=== PATIENT | female | born 1975 | race Asian ===

== ENCOUNTER 2021-10-06 17:22 | Emergency (ER) | payer OTHER ==
--- OUTSIDE RECORDS SUMMARY | 2021-10-06 17:26 | XMS REPORT | Continuity of Care Document ---
:1975 Author Organization [facility] t Address [address] [place] [address] Care Team Providers Name Role Phone Whitney Nayla Attending Clinician Unavailable Corrie Cruz Attending Clinician Unavailable Elizabeth Harper Attending Clinician Unavailable Kinza Geller Attending Clinician Unavailable UNKNOWN Attending Clinician Unavailable Joel Hawk Attending Clinician Unavailable Joel Cruz Admitting Clinician Unavailable Elizabeth Harper Admitting Clinician Unavailable Physician, Primary or Family Admitting Clinician Unavailabl e Kinza Geller Admitting Clinician Unavailable Joel Hawk Admitting Clinician Unavailable Payers Payer Name Policy Type Policy Number Effective Date Expiration Date S ource Problems This patient has no known problems. Allergies, Adverse Reactions, Alerts Allergy Allergy Status Severity Reaction(s) Onset Inactive Treating Comm ents Source Name Type Date Date Clinician No Known DA Active U 2021-0 [facility] 3-07 [place] [facility] 00:00: [facility] [address] [facility] No Known DA Active U 2019-06 [facility]ie 0-27 [facility] 00:[facility]: d 00 [facility] [place] No Known DA Active U 2019-06 [facility] Allergie 0-27 [place] [facility] 00:[place]: d 00 [facility] Medications This patient has no known medications. Procedures Procedure Date / Time Performed Performing Clinician Clyde el [id number] 2020-04-03 00:00:00 CHARLENE.07 [facility] [id number] 2020-04-03 00:00:00 CHARLENE.07 [facility] [id number] 2020-04-03 00:00:00 CHARLENE.07 [facility] [id number] 2020-04-03 00:00:00 CHARLENE.07 [facility] Encounters Start End Encounter Admission Attending Care Care Encounter Source Date/Time Date/Time Type Type Clinicians Facility Department ID 2021-08-25 Outpatient [place], [facility] [id number] 11[facility]41[facility]01 [facility] 2020-04-04 Inpatient OCHOA Lopez MEDI.01 [id number] [facility] 19:21:00 [facility] 2020-04-03 [facility] [id number] [facility] 11:00:00 Corrie [id number] [facility] 2020-02-21 Inpatient MARLENE Tsang [facility] [id number] [facility] 11:15:00 [place], [id number] Jr de la cruz [facility] 2021-09-24 2021-09-24 [facility] [id number] [facility] 2021-08-25 2021-08-25 ambulatory [facility] [id number] [facility] 2021-08-13 2021-08-13 Outpatient EL [facility] DAYS [id number] [facility] 08:23:00 08:23:00 [place], [id number] [facility] 2021-08-13 2021-08-13 Outpatient EL Byunm-Arrast [facility] [id number] [facility] 08:23:00 08:23:00 [place], [place] [facility] 2021-08-10 2021-08-10 Outpatient UNKNOWN HCACL LABO [id number] [facility] 16:59:00 16:59:00 [id number] [facility] 2021-03-17 2021-03-17 Outpatient KAREN Kat FABRICIO [id number] [facility] 12:00:00 12:00:00 Severo [id number] [facility] 2021-03-17 2021-03-17 Outpatient OCHOA KatPM FABRICIO [id number] [facility] 12:00:00 12:00:00 Severo 11 [facility] 2020-04-01 2020-04-01 Outpatient Anthony[facility] LA4 [id number] [facility] 11:00:00 11:00:[id number] [facility] 2020-02-13 2020-02-13 Outpatient MARLENE PACKERPM FABRICIO [id number] [facility] 12:00:00 12:00:00 [place], [facility] 2020-02-12 2020-02-12 Outpatient MARLENE PACKER FABRICIO [id number] [facility] 12:00:00 12:00:00 [place], [facility] Results Test Description Test Time Test Comments Results Result Comments Source SURGICAL 2021-08-17 14:26:00 Test Item Value Reference Range Interpretation Comme nts SURGICAL RUN (test DATE: 08/17/21 [facility] - LAB PAGE 1 RUN TIME: code = 1427 Specimen Inquiry RUN USER: INTERFACE SR) PATIENT : ROXY MENON LOC: ISIDRA U #: [id number] AGE/ SX: 46/F ROOM: RE08/13/21[facility] DR: Ranulfo Geller : 75 BED : DIS: STATUS: [facility] TLOC: SPEC #: [id number] RECD: 08/14/21 [facility] #: [id number] REYNALDO: 08/13/21-[address]: Dorcas Geller MD ENTERED: 08/14/21 SP TYPE: SURGICAL O THR DR: Self Referred ORDERED: 21441/2, ANATOMIC SPEC HISTOLOGY: TISSUE ID BLK PCS ELISABET LEV / PROCEDURE DISPOSITION ____ ___ ___ ___ ___ OVL A 4 1 OVR B 4 1 TISSUES: A. OVARY, LEFT - Lt Ovary and Tube B. OVARY, R IGHT - Rt Ovary and Tube FINAL DIAGNOSIS A. Left Ovary and Fallopian Tube, Left Salping o-oophorectomy:- Ovary with cortical inclusion cyst.- Fallopian tube, full cross section, with par atubal cyst. B. Right Ovary and Fallopian Tube, Right Salpingo-oophorectomy:- Ovar y with cortical inclusion cyst.- Fallopian tube, full cross section, with no histopathologic alte ration. GROSS DESCRIPTION A. Received in formalin, labeled with the patient's name, date of and designatedspecimen A "left ovary and tube". Received is a fimbriated fallopian tube th at measures4.5 cm in length with an average diameter of 0.5 cm and attached maloney ovary that chu ures1.7 x 1.1 x 0.9 cm. The ovary is serially sectioned revealing a maloney homogenous cut surfacean d a well circumscribed cyst like structure that measures 0.3 cm in the greatestdimension. Also trina ntified is a paratubal cyst that has a diameter of 0.7 cm. Thefallopian tube is sectioned using the [facility] melinda col. The specimen is submittedrepresentatively as follows: A1 - two sections from the ovary; A2 to A4 - fallopiantube sections from resection to f imbria. The fimbria is submitted in A4. B. Received in formalin, labeled with the patient's n petr, date of and designatedspecimen B "right ovary and tube". Received is a fimbriated fal lopian tube that measures4.6 cm in length with an average diameter of 0.5 cm. The corresponding o vary measures 2.8x 1.6 x 1.0 cm and is maloney and wrinkled. The ovary is serially sectioned revealing apink-yellow smooth cut surface The fallopian tube is sectioned using the SEE-FIM protocol. The sp ecimen is submitted representatively as follows: B1 - two cut sections from theovaries; B2 to B4 - fallopian tube, submitted sequentially; fimbria is submitted inB4. MACK/carol CONTINUED ON NEXT PAGE RUN DATE: 08/17/21 [facility] - LAB PAGE 2 RUN TIME: 1426 Specimen Inquiry RUN USER: INTERFACE SPEC #: [id number] PATIENT: ROXY MENON #[id number] (Continued) ---- JADE Yao (Continued) [facility], [facility], [address] Unless gross only, the diagnosis is based upon microscopic ex amination.Immunohistochemistry: This test was developed and its performancecharacteristics d etermined by this laboratory. It has not been approved nordoes it need approval by the [place] FDA. Appr opriate positive and negative controlsare reviewed and judged to be acceptable. This laboratory is certified undert Clinical Laboratory Improvement Amendments (CLIA-88) as qualified toper form high complexity clinical laboratory testing. CLINICAL INFORMATION Breast Cancer Signed SIGNATURE ON FILE Kian Mckeon 08/17/21 1426 END OF REPORT Novel Coronavirus 2019 [id number] 05:20:00 Test Item Value Reference Range Interpretation Comments Novel Coronavirus Negative Negative Positive r esults are 2019 Inhouse (test indicativ e of the presence code = COVNONPUI) ofSARS-CoV -2 RNA, clinical correlation wit h patient historyand othe r diagnostic info rmation is necessary to determinepatien t infection status. Positiv e results do not rule out bacterial infection or co -infection with other viru ses. Negative result s do not preclude SARS-C oV-2 infection andsh ould not be used as the chilango e basis for patient managementdecis ions. Negative result s must be combined with otherclinical observations, p atient history, and epidemiological information . Detection of SARS-CoV-2 RNA may be affe cted bysample collec tion methods, storag e conditions, and /or stageof infection. Karol l RNA mutations, vacc inations, antiviraltherap eutics, antibiotics, chemotherapeuti c orimmunosuppres kaylin drugs have not been e valuated for effectson d etection. Results are for the identification of SARS-CoV-2 RNA usingreal-time (RT) polymerase rosario n reaction (PCR) technolog yfor the qualitative det ection of nucleic acids f rom vhoEQIY-[id number]-6 v irus and diagnosis of SA RS-CoV-2 virusinfection. It is an Emergency Use Authorization ( EUA) testauthorized by the U.S. FDA. Novel Coronavirus 2018 [id number] 05:20:00 Test Item Value Reference Range Interpretation Comments Novel Coronavirus Negative Negative Positive r esults are 2019 Inhouse (test indicativ e of the presence code = COVNONPUI) ofSARS-CoV -2 RNA, clinical correlation wit h patient historyand othe r diagnostic info rmation is necessary to determinepatien t infection status. Positiv e results do not rule out bacterial infection or co -infection with other viru ses. Negative result s do not preclude SARS-C oV-2 infection andsh ould not be used as the chilango e basis for patient managementdecis ions. Negative result s must be combined with otherclinical observations, p atient history, and epidemiological information . Detection of SARS-CoV-2 RNA may be affe cted bysample collec tion methods, storag e conditions, and /or stageof infection. Karol l RNA mutations, vacc inations, antiviraltherap eutics, antibiotics, chemotherapeuti c orimmunosuppres kaylin drugs have not been e valuated for effectson d etection. Results are for the identification of SARS-CoV-2 RNA usingreal-time (RT) polymerase rosario n reaction (PCR) technolog yfor the qualitative det ection of nucleic acids f rom dceAKXX-OiH-1 v irus and diagnosis of SA RS-CoV-2 virusinfection. It is an Emergency Use Authorization ( EUA) testauthorized by the U.S. FDA. - XR CHEST 1 [id number] 12:27:00 [facility] : 1975 Sex: FPatient Name: ROXY MENON Unit No: [id number] EXAMS: CPT CODE: [id number] XR CHEST 1 V 67973 EXAM: Chest one view. Location: A1 HISTORY: PRE OP COMPARISON: None available. FINDINGS: Surgical clips are seen within the right hilum. The lungs are free of focal airspace consolidations.. There are no pleural effusions or pneumothorax. The aorta, pulmonary vasculature and mediastinum are within normal limits. Cardiac silhouette is normal in size and contour. Visualized skeletal structures are unremarkable. IMPRESSION: No active disease in the chest. at 1227 Reported and signed by: ARELIS OTTO M.D. CC: Dorcas Geller MD Technologist: Lars Baker Fluoro Time: DAP (Gy m2): Air Kerma (mGy): Trscr Dt/Tm: 08/10/2021 (1227) by:[email or web address] Printed Date/Time: 08/10/2021 (6070) Name: ROXY MENON [facility] Phys: Chintan Damico [address] : 1975 Age: 46 Sex: [place] [address] Loc: P.SRG Exam Date: 08/10/2021 Status: PRE SDC PH: FAX: PAGE 1 Signed ReportTHROMBOPLASTIN TIME [id number] 11:43:00 Test Item Value Reference Range Interpretation Comments THROMBOPLASTIN TIME 34.8 SECONDS 23.8-34.8 N INTERPRE TATIVE PARTIAL (test code = DATA:Th erapeutic PTT) range: Unfractionated heparin:55 - 80 seconds Argatroban:1.5 to 3 times the basel ine PTT COMPREHENSIVE METABOLIC [id number] 11:43:00 Test Item Value Reference Range Interpretation Comments SODIUM (test code = 143 mmol/L 136-145 N Please n ote: New NA) Reference Range Jul 2020 POTASSIUM (test 4.4 mmol/L 3.5-5.1 N code = K) CHLORIDE (test code 104 mmol/L 98-107 N Please n ote: New = CL) Reference Range Jul 2020 CARBON DIOXIDE 29 mmol/L 20-31 N Please note: New (test code = CO2) Reference Range Jul 2020 GLUCOSE (test code 96 mg/dL 74-106 N Please no te: New = GLU) Reference Range Jul 2020 BLOOD UREA NITROGEN 11 mg/dL 9-23 N Please n ote: New (test code = BUN) Reference Range Jul 2020 GLOMERULAR >=60 max >60 Units are FILTRATION RATE estimate mL/min mL/min/1. 73m2 The (test code = GFR) estimated glomerular filtration rate is computed usingpatient ra ce, age (>18), sex, and serum creatinin e. If anyof the ne eded data elements a re missing the Laboratory zay ot compute an estimation of t he glomerular filtration rate . CREATININE (test 0.70 mg/dL 0.55-1.02 N Please note : New code = CREAT) Reference Rang e Jul 2020 TOTAL PROTEIN (test 7.3 g/dL 5.7-8.2 N Please n ote: New code = PROT) Reference Range Jul 2020 ALBUMIN (test code 4.7 g/dL 3.2-4.8 N Please no te: New = ALB) Reference Range Jul 2020 CALCIUM (test code 9.1 mg/dL 8.7-10.4 N Please no te: New = CA) Reference Range Jul 2020 BILIRUBIN TOTAL 0.4 mg/dL 0.3-1.2 N Please note: New (test code = BILT) Reference Range Jul 2020 SGOT/AST (test code 29 U/L <34 N Please n ote: New = AST) Reference Range Jul 2020 SGPT/ALT (test code 24 U/L 10-49 N Please n ote: New = ALT) Reference Range Jul 2020 ALKALINE 83 U/L 46-116 N Please note: Ne w PHOSPHATASE (test Reference Range Feb code = ALKP) 2020 PROTHROMBIN [id number] 11:43:00 Test Item Value Reference Range Interpretation Comments PROTHROMBIN TIME 11.0 SECONDS 10.3-12.9 N PATIENT (test code = PTP) INTERNATIONAL 0.97 INR UNIT 0.9-1.11 N The INR is us eful only NORMAL RATIO (test for monit oring code = INR) anticoagulant therapy.It may be unreliable in t he initial phase o f antigoagulation and in unstable patien ts. Indication for Anticoagulation Recommend ed INR 1. Prevention o f venous thomboembolism 2.0-3.0in high -risk patients; treat ment of venousthrombosi s and pulmonary embol ism aftera course o f heparin; preven tion of systemicembolis m in a variety of cond itions, including atria l fibrillation an d prothetic tissu e heart valves, 2. Pros thetic mechanical hear t valves; 2.5-3.5recurren t systemic emboli sm. UR HCG [id number] 11:37:00 Test Item Value Reference Range Interpretation Comments UR HCG QUAL (test code = HCGQLU) NEGATIVE NEGATIVE CBC W/AUTO [id number] 11:31:00 Test Item Value Reference Range Interpretation Comments WHITE BLOOD CELL (test code = 5.6 x10 3/uL 4.8-10.8 N WBC) RED BLOOD CELL (test code = 4.55 x10 6/uL 4.20-5.40 N RBC) HEMOGLOBIN (test code = HGB) 14.0 g/dL 12.0-16.0 N HEMATOCRIT (test code = HCT) 43.5 % 37.0-47.0 N MEAN CELL VOLUME (test code = 95.6 fL 81.0-99.0 N MCV) MEAN CELL HGB (test code = MCH) 30.8 pg 27-31 N MEAN CELL HGB CONCENTRATION 32.2 G/DL 33-36.5 L (test code = MCHC) RED CELL DISTRIBUTION WIDTH 12.4 % 12.9-16.9 L (test code = RDW) PLATELET COUNT (test code = 286 x10 3/uL 150-440 N PLT) MEAN PLATELET VOLUME (test code 9.7 fL 8.9-12.4 N = MPV) NEUTROPHIL % (test code = NT%) 75.5 % 42.2-75.2 H LYMPHOCYTE % (test code = LY%) 16.2 % 20.5-51.1 L MONOCYTE % (test code = MO%) 6.2 % 1.7-9.3 N EOSINOPHIL % (test code = EO%) 1.4 % 0.0-7.0 N BASOPHIL % (test code = BA%) 0.5 % 0-2.5 N NEUTROPHIL # (test code = NT#) 4.23 x10 3/uL 1.80-7.70 N LYMPHOCYTE # (test code = LY#) 0.91 x10 3/uL 1.00-4.80 L MONOCYTE # (test code = MO#) 0.35 x10 3/uL 0.00-0.80 N EOSINOPHIL # (test code = EO#) 0.08 x10 3/uL 0.00-0.45 N BASOPHIL # (test code = BA#) 0.03 x10 3/uL 0.0-0.20 N BREAST MASTECTOMY WITH [id number] 12:13:00 Test Item Value Reference Range Interpretation Comments BREAST MASTECTOMY WITH NODES (test code = BREASTMAST) RUN DATE: 04/22/20 [facility] PAGE 1 RUN TIME: 1345 Specimen Inquiry RUN USER: INTERFACE PATIENT: ROXY MENON LOC: MARGUERITE U #: [id number] AGE/SX: 44/F ROOM: [facility] RE04/04/20REG DR: Corrie Cruz : 75 BED: A DIS: 04/05/20 STATUS: DIS IN TLOC: SPEC #: [id number] RECD: 04/03/20 STATUS: [place] REChaya #: [id number] REYNALDO: 04/03/20- [facility] DR: Corrie Cruz MD ENTERED: 04/03/20 SP TYPE: BRSMASWRLN TOM DR: ORDERED: LEVEL SURGIC CODES: [id number] - BREAST, NOS [id number] - LYMPH NODE, NOS PROCEDURES: LEVEL SURGIC (Incomplete) TISSUES: BREAST, NOS - RIGHT AND LEFT BREAST, LEFT MARGINS X 2 LYMPH NODE, NOS - RIGHT SENTINEL LYMPH NODE CLINICAL HISTORY 44 year old, RIGHT breast cancer (wpd) NOTE: LEFT breast simple mastectomy, no mammographic localization device is noted mammographically (kr) FINAL DIAGNOSIS RIGHT sentinel lymph nodes, excision: - 1 lymph node, positive for metastatic carcinoma (metastatic focus - 4.0 mm with up to 0.5 mm extranodal extension) LEFT breast, mastectomy: - benign breast parenchyma with radial sclerosing lesions and duct epithelial hyperplasia of the usual type - no atypia or malignancy identified - margins of resection - unremarkable - skin and nipple - no tumor identified Medial margin, LEFT breast, excision: - benign skin and breast parenchyma, no atypia or malignancy identified Lateral margin, LEFT breast, excision: - benign skin and breast parenchyma, no atypia or malignancy identified RIGHT breast, mastectomy: - invasive lobular carcinoma (3.7 cm) with focal ductal features, [place] histologic grade - 2 - multifocal lobular carcinoma in-situ with foci of necrosis, some ducts with focal features or ductal carcinoma in-situ - lymphovascular invasion - present - margins - free of tumor [invasive carcinoma is 3.0 mm from the nearest (anterior/superior) resection margin; CONTINUED ON NEXT PAGE RUN DATE: 04/22/20 [facility] PAGE 2 RUN TIME: 1345 Specimen Inquiry RUN USER: INTERFACE SPEC #: [id number] PATIENT: ROXY MENON #[id number] (Continued) --- FINAL DIAGNOSIS (Continued) carcinoma in-situ is 4.0 mm from the nearest (anterior/superior) resection margin] - skin and nipple - no pathologic alterations, no tumor identified RIGHT sentinel lymph node #2, excision: - 1 lymph node, positive for metastatic carcinoma (metastatic focus - 1.3 mm; no extranodal extension) RIGHT sentinel lymph node #3, excision: - 1 lymph node, positive for isolated tumor cell clusters on pancytokeratin immunostain (no metastatic carcinoma identified on H E routine stain sections) Designated "RIGHT sentinel lymph node clip", removal: - lymph node clip (gross identification only) COMMENT: Permanent sections correlate with frozen section diagnosis. The tumor cells are present mostly in single file rows, sheets, and few clusters, have intermediate grade nuclei and up to 6 mitotic figures per mm2. In the sections selected for immunostaining, the tumor cells are mostly negative for membranous staining for E-Cadherin and p120. Focal membranous staining for p120 is present. The focal clustering of tumor cells and the focal p120 membranous staining suggest focal features of ductal carcinoma. The in-situ carcinoma in the current sample appears to mostly lack E-Cadherin membranous staining and p120 membranous staining. A few foci of membranous staining are present. Overall, the features in the in-situ carcinoma favor lobular subtype; however, given the focal membranous staining on E-Cadherin and p120 immunostains, suggests focal features of DCIS. The following technical components were performed at [facility] [place], [address], [address], [place] [address]. The interpretation is provided by [facility], [address] [place] [id number]. Positive and/or negative controls received from [facility] stained appropriately. RESULTS: Pancytokeratin (F1, F2) - positive for isolated tumor cell clusters E-Cadherin (D7) - not identified in invasive or in-situ component P120 (D7) - not identified in invasive component, rare focal membranous staining in in-situ component E-Cadherin (D7, D8, RE3) - mostly negative in the invasive carcinoma with focal membranous staining CONTINUED ON NEXT PAGE RUN DATE: 04/22/20 [facility] PAGE 3 RUN TIME: 1345 Specimen Inquiry RUN USER: INTERFACE SPEC #: [id number] PATIENT: ROXY MENON #[id number] (Continued) --- FINAL DIAGNOSIS (Continued) P120 (D7, D8, RE3) - mostly negative in the invasive carcinoma with focal membranous staining * Surgical Pathology Cancer Case Summary Protocol posting date: July 2019 INVASIVE CARCINOMA OF THE BREAST: Resection Procedure: - Total mastectomy Specimen Laterality: - RIGHT Tumor Site: - Upper outer quadrant - Clock position: 11 o'clock Tumor Size: - Greatest dimension of largest invasive focus (millimeters): 37.0 mm Histologic Type: - Invasive lobular carcinoma with minor features of invasive ductal carcinoma Histologic Grade ([place] Histologic Score): Glandular (Acinar)/Tubular Differentiation: - Score 3 Nuclear Pleomorphism: - Score 2 Mitotic Rate: - Score 2 Overall Grade: - Grade 2 (score of 6) Tumor Focality: - Single focus of invasive carcinoma Ductal Carcinoma In Situ (DCIS): - The in-situ carcinoma has mostly features of lobular subtype but has some overlapping features with ductal subtype CONTINUED ON NEXT PAGE RUN DATE: 04/22/20 [facility] PAGE 4 RUN TIME: 1345 Specimen Inquiry RUN USER: INTERFACE SPEC #: [id number] PATIENT: ROXY MENON #[id number] (Continued) --- FINAL DIAGNOSIS (Continued) Nuclear Grade: - Grade II (intermediate) Necrosis: - Present, focal (small foci or single cell necrosis) - Present, central (expansive "comedo" necrosis) Lobular Carcinoma In Situ (LCIS): - Present Tumor Extension: Skin: - Skin is present and uninvolved Nipple: - DCIS does not involve the nipple epidermis Skeletal Muscle: - No skeletal muscle is present Margins: Invasive Carcinoma Margins: - Uninvolved by invasive carcinoma Distance from closest margin (millimeters): 3.0 mm Closest margin: anterior-superior In-Situ Carcinoma Margins: Distance from closest margin (millimeters): 4.0 mm Closest margin(s): anterior/superior Regional Lymph Nodes: - Involved by tumor cells Number of Lymph Nodes with Macrometastases (>2 mm): 2 Number of Lymph Nodes with Isolated Tumor Cells: 1 Size of Largest Metastatic Deposit (millimeters): 4.0 mm Extranodal Extension - Present Extent of extranodal extension - 0.5 mm Total Number of Lymph Nodes Examined: 3 Number of [place] Nodes Examined: 3 CONTINUED ON NEXT PAGE RUN DATE: 04/22/20 [facility] PAGE 5 RUN TIME: 1345 Specimen Inquiry RUN USER: INTERFACE SPEC #: [id number] PATIENT: ROXY MENON #[id number] (Continued) --- FINAL DIAGNOSIS (Continued) Treatment Effect in the Breast: - No known presurgical therapy Treatment Effect in the Lymph Nodes: - No known presurgical therapy Lymphovascular Invasion: - Present Dermal Lymphovascular Invasion: - Not identified Pathologic Stage Classification (pTNM, AJCC 8th Edition): Primary Tumor (pT): - pT2: Tumor >20 mm but <50 mm in greatest dimension Regional Lymph Nodes Modifier: - (sn): [place] node(s) evaluated Regional Lymph Nodes (pN): - pN1a: Metastases in 1 to 3 axillary lymph nodes, at least 1 metastasis larger than 2.0 Distant Metastasis (pM): - Not assessed Additional Pathologic Findings: - Specify: Previous biopsy site identified in specimen designated "RIGHT sentinel lymph node" Ancillary Studies: - Breast Biomarker Testing Performed on Previous Biopsy on 02/21/20 at [facility] [address], [address], [place] [address]. - Testing Performed on Case Number: Accession No. [id number] - Estrogen Receptor (ER): Positive, 95%, strong intensity - Progesterone Receptor (PgR): Positive, 90%, strong intensity - HER2 (by IHC) - 0, negative - Ki-67: 10% CPT code(s): 79708 x4, 63025 x3, 09273, 20167, 09437 x2, 69689-60 x3, 74059-79 x3 pkg/wpd CONTINUED ON NEXT PAGE RUN DATE: 04/22/20 [facility] PAGE 6 RUN TIME: 1345 Specimen Inquiry RUN USER: INTERFACE SPEC #: [id number] PATIENT: ROXY MENON #[id number] (Continued) --- GROSS DESCRIPTION ANATOMIC SOURCE OF TISSUE (per Requisition): 1. RIGHT sentinel lymph nodes, count 805 (frozen) 2. LEFT breast, suture is lateral, 388 gram 3. Medial margin, LEFT breast 4. Lateral margin, LEFT breast 5. RIGHT breast (single suture is lateral and 2 short sutures at cancer site) 6. RIGHT sentinel lymph node #2 7. RIGHT sentinel lymph node #3 8. RIGHT sentinel lymph node clip, count 805 Each specimen is labeled with the patient's name and medical record number. Specimen #1 received without fixative in a container, labeled with the patient's name is designated "RIGHT sentinel lymph nodes (count 805)". The specimen consists of a 2.5 x 2.0 x 0.8 cm aggregate of maloney-yellow fatty soft tissue. A 1.5 x 1.0 x 0.8 cm lymph node is identified. A ribbon clip is identified in the lymph node. The lymph node is entirely submitted in FS1 - FS3. Specimen #2 is designated "LEFT breast, suture is lateral" and consists of a 394 gm, skin sparing simple mastectomy specimen measuring 17 cm from medial to lateral, 17 cm from superior to inferior, and 5 cm from anterior to posterior. The central anterior surface contains a 4 x 3.5 cm oval ellipse of maloney, wrinkled skin with an unretracted nipple and areola complex measuring 0.8 and 3.2 cm. The nipple and areola is sectioned and submitted in toto in A1. Ink Code: Blue - superior one-half of the anterior surface Red - inferior one-half of the anterior surface Black - entire deep surface Serial sectioning of the specimen reveals off-white and yellow fibrofatty breast tissue with a fibrous tissue to adipose tissue ratio of approximately 1:4. Beer Merchant sections are submitted as follows: A2 through A5 - inner upper quadrant A6 through A9 - inner lower quadrant A10 through A13 - outer upper quadrant A14 through A17 - outer lower quadrant Specimen #3 is designated "medial margin, LEFT breast" and consists of an unoriented C-shaped ellipse of unremarkable light maloney skin with underlying yellow tissue measuring 3.4 x 2.7 x 1.5 cm. The entire margin is inked black. Serial sectioning of the specimen reveals yellow fatty with no lesion. Beer Merchant sections are submitted in B1 through B3. Specimen #4 is designated "lateral margin, LEFT breast" and consists of a C-shaped CONTINUED ON NEXT PAGE RUN DATE: 04/22/20 [facility] PAGE 7 RUN TIME: 1345 Specimen Inquiry RUN USER: INTERFACE SPEC #: [id number] PATIENT: SINANROXY Yao #[id number] (Continued) --- GROSS DESCRIPTION (Continued) portion of unoriented light maloney skin with underlying yellow tissue measuring 3.5 x 3 x 1.1 cm. The margin is inked red. Serial sectioning of the specimen reveals yellow fatty with no lesion. Beer Merchant sections are submitted in C1 through C3. kaelyn/margarette 04/03/20 Specimen #5 is designated "RIGHT breast (single suture is lateral, 2 short sutures at cancer site)". The specimen consists of a mastectomy measuring 19 x 18 x 5 cm with overlying maloney-pink to brown skin (3.5 x 3.0 cm). The epidermal surface displays a 1.2 cm in diameter nipple. Orientation sutures are placed as follows: single suture - lateral, double suture - cancer site. The specimen is serially sectioned to reveal a 3.7 x 2.7 x 1.8 cm ill-defined, maloney-white to yellow, firm mass which is 0.4 cm from the anterosuperior margin. A metallic gomez ribbon clip is identified. The mass is 1.3 cm from the skin margin and 2.5 cm from the nipple. The lesion is at the approximate 12:00 aspect. The mass is 2.8 cm from the posterior margin. No other gross lesions are identified. The fibrous tissue to adipose tissue ratio is 1:4. A possible axillary tail is identified measuring 5.5 x 5.0 x 1.5 cm. No lymph nodes are grossly identified. The specimen is inked as follows: Blue - anterosuperior Red - anteroinferior Black - posterior Green - mass with nearest margin Beer Merchant sections are submitted as follows: D1 and D2 - skin margin closest to mass D3 - nipple D4 through D6 - mass to anterosuperior margin D7 through D9 - mass D10 - posterior margin closest to mass D11 and D12 - upper outer quadrant D13 and D14 - lower outer quadrant D15 and D16 - upper inner quadrant D17 and D18 - inner lower quadrant D19 through D21 - possible axillary tissue anthony/gildardo 04/03/20 Resubmits of mass are submitted in RE1 through RE3. anthony/margarette 04/10/20 Specimen #6 is designated "RIGHT sentinel lymph node #2" and consists of a 2.5 x 1.7 x 1 cm yellow fatty tissue. It contains two lymph nodes measuring 0.6 and 1.1 cm. The lymph nodes are sectioned and submitted in toto in E1 and E2, respectively and the remaining tissue in toto in E3. CONTINUED ON NEXT PAGE RUN DATE: 04/22/20 [facility] PAGE 8 RUN TIME: 1345 Specimen Inquiry RUN USER: INTERFACE SPEC #: [id number] PATIENT: ROXY MENON #[id number] (Continued) --- GROSS DESCRIPTION (Continued) Specimen #7 is designated "RIGHT sentinel lymph node #3" and consists of a 3 x 1 x 0.8 cm yellow fatty tissue. It contains one lymph node measuring 0.8 cm. The lymph node is sectioned and submitted in toto in F1 and the remaining tissue in toto in F2. Specimen #8 is designated "RIGHT sentinel lymph node clip, count 805" and consists of MARII Manager Technical Sales clip measuring 1.2 cm in length and is for gross Id only. No tissue is identified. kaelyn/margarette 04/03/20 MICROSCOPIC DESCRIPTION Specimen #1 consists of one sentinel lymph node containing fibrosis and foreign material consistent with a previous biopsy site. Metastatic carcinoma is identified. Specimen #2 consists of a LEFT breast mastectomy specimen. A few radial sclerosing lesions are identified along with ductal epithelial hyperplasia of the usual type. No atypia or malignancy is identified. Specimen #3 consists of benign skin and breast parenchyma. No tumor is identified. Specimen #4 consists of benign skin and breast parenchyma, no atypical hyperplasia or malignancy is identified. Specimen #5 consists of a RIGHT mastectomy specimen containing a mass composed of single file rows and sheets of tumor cells invading stroma with a desmoplastic response. The tumor nuclei are intermediate nuclear grade, up to 7 mitoses are present per mm2 and no tubule formation is identified. Lymphovascular invasion is present. Within the vicinity of the invasive carcinoma are scattered ducts with lobular carcinoma in-situ accounting for approximately 40% of the total tumor and a few ducts with focal membranous staining on E-Cadherin and p120 stains, suggestive of focal ductal differentiation. Specimen #6 consists of a lymph node with metastatic carcinoma. Specimen #7 consists of one lymph node. Isolated tumor cell clusters are identified on pancytokeratin immunostain. Specimen #8 consists of a sentinel lymph node clip and is for gross identification only. elba/wpdorothy Signed Nat Connors 04/08/20 1213 END OF REPORT HGB [id number] 05:46:00 Test Item Value Reference Range Interpretation Comments HEMOGLOBIN (test code = HGB) 9.9 g/dL 10.7-13.9 L HEMATOCRIT (test code = HCT) 31.5 % 32.1-42.1 L - NM [id number] 17:54:00 [facility] 1975 Sex: F Patient Name: ROXY MENON Unit No: [id number] EXAMS: CPT CODE: [id number] [place] LYMPHIMAG [id number] PROCEDURE: NUCLEAR MEDICINE INJECTION FOR SENTINEL NODE WITH SCINTIGRAPHY INDICATION: RIGHT BREAST CA. - SENTINEL NODE MAPPING; . TECHNIQUE: Injection of 3.5 mCi technetium 99m filtered sulfur colloid was performed in the 6 o'clock periareolar right breast under sterile conditions and local anesthesia for sentinel lymph node identification. Injection was performed at 1630 hours. Lymphoscintigraphy was performed in AP and oblique projections with and without transmission images. FINDINGS: Focal intense uptake corresponding to injection site right breast. Focal uptake right axilla identified as the sentinel node and labeled by the nuclear instructor. SL: KL-H at 1754 Reported and signed by: Holden Estrada MD CC: José Wilkinson MD; Corrie Cruz MD Technologist: Jimi Davey D/ ([id number]) DawsonKWL Orig Print D/T: S: 04/02/2020 (411) [facility] NAME: ROXY MENON Radiology Department PHYS: Corrie Hill [address] : 1975 AGE: 44 SEX: F [place], [place] [address] LOC: HiRYLAN PHONE #: [phone] EXAM DATE: 04/02/2020 [place] [facility] [place]: [phone] RAD NO: Page 1 Signed ReportCOVID 19 Asymptomatic IH [id number] 17:26:00 Test Item Value Reference Range Interpretation Comments COVID 19 NEGATIVE NEGATIVE This test has b een Asymptomatic IH AG authorize d only for the (test code = detection ofpro teins from COVNONPUIAG) SARS-CoV-2, not for any other viruses orpathogens. N egative results should be treated as presumptive andconfirmed wi th a molecular assay , if necessary for patientmanageme nt. Negative result s do not rule out COVID- 19 andshould not b e used as the sole basis for treatment orpat ient management deci sions, including infec tion controldecision s. Negative result s should be considered i n thecontext of a patient's recent exposure s, history and thepresence of clinical signs and symptoms consis tent withCOVID-19. T his test has not been FD A cleared or approved; th e test hasbeen authori tania by FDA under an Emerge ncy Use Authorization(E UA) for use by laborato andrew certified under the CLIA thatmeet the re quirements to perform mode rate, high or waivedcomple xity tests. This dora t is authorized for use at thePoint of Car e (POC), i.e., in patien t care settingsoperati ng under a CLIA Certificat e of Waiver, Certifi vanessa ofCompliance, o r Certificate of Accreditation. This test is only authori tania for the duration of thedeclaration that circumstances e xist justifying theauthorizatio n of emergency use o f in vitro diagnostic test sfor detection and/o r diagnosis of CO VID-19 under Csuahma54 4(b)(1) of the Act, 21 U.S .C. 360bbb-3(b)(1), unless theauthorizatio n is terminated or r evoked sooner. HCG [id number] 13:53:00 Test Item Value Reference Range Interpretation Comments HCG SERUM (test <1 INTERPRETATI ON:VALUES BETWEEN code = HCG) 15-20 milliInte rnational units/mL NEED T O BERETESTED WITHIN 48 HOURS . All units for these ranges ar e in milliInternatio nalunits/mL0-1 WK AFTER CONCEP TION 0-50 1-2 W KS AFTER CONCEPTION 40-3002-3 WKS A FTER CONCEPTION 100-1 ,0003-4 WKS AFTER CONCEPTIO N 500-6,0001-2 MO NTHS AFTER CONCEPTION 5,000-200,0002- 3 MONTHS AFTER CONCEPTION 10,000-100,0002 ND TRIMESTER 3,000-50,0003RD TRIMESTER 1 ,000-50,000 SPECIMENS WITH AN HCG LEVEL FROM 0-6 milliInternatio nalunits/mL SHOULD BE CONSI DERED NEGATIVE CHEMISTRY 7 [id number] 13:46:00 Test Item Value Reference Range Interpretation Comments SODIUM (test code = NA) 138 mEq/L 135-145 N POTASSIUM (test code = K) 4.2 mEq/L 3.5-5.0 N CHLORIDE (test code = CL) 100 mEq/L 100-115 N CARBON DIOXIDE (test code = CO2) 29 mEq/L 22-31 N ANION GAP (test code = GAP) 13.50 10-20 N GLUCOSE (test code = GLU) 90 mg/dL 65-110 N BLOOD UREA NITROGEN (test code = 9 mg/dL 7-18 N BUN) GLOMERULAR FILTRATION RATE (test 78 ml/min >60 N code = GFR) CREATININE (test code = CREAT) 0.8 mg/dL 0.5-1.0 N CALCIUM (test code = CA) 9.2 mg/dL 8.4-10.2 N LIVER [id number] 13:46:00 Test Item Value Reference Range Interpretation Comments TOTAL PROTEIN (test code = PROT) 8.0 gm/dL 6.3-8.2 N ALBUMIN (test code = ALB) 4.2 gm/dL 3.4-4.8 N BILIRUBIN TOTAL (test code = BILT) 0.4 mg/dL 0.2-1.0 N BILIRUBIN DIRECT (test code = 0.1 mg/dL <0.2 N BILD) SGOT/AST (test code = AST) 11 units/L 15-37 L SGPT/ALT (test code = ALT) 17 units/L 12-78 N ALKALINE PHOSPHATASE TOTAL (test 73 units/L 46-116 N code = ALKP) CBC W/AUTO [id number] 13:19:00 Test Item Value Reference Range Interpretation Comments WHITE BLOOD CELL (test code = WBC) 7.2 K/mm3 6.6-12.1 N RED BLOOD CELL (test code = RBC) 4.46 M/mm3 3.45-5.01 N HEMOGLOBIN (test code = HGB) 12.2 g/dL 10.7-13.9 N HEMATOCRIT (test code = HCT) 38.4 % 32.1-42.1 N MEAN CELL VOLUME (test code = MCV) 86 fL 84.1-94.8 N MEAN CELL HGB (test code = MCH) 27.4 pg 27-35 N MEAN CELL HGB CONCETRATION (test 31.8 gm/dL 32.2-34.1 L code = MCHC) RED CELL DISTRIBUTION WIDTH (test 14.2 % 12.4-16.5 N code = RDW) PLATELET COUNT (test code = PLT) 344 K/mm3 133-385 N MEAN PLATELET VOLUME (test code = 10.7 fl 9.1-12.7 N MPV) NEUTROPHIL % (test code = NT%) 73.0 % 56.5-79.4 N LYMPHOCYTE % (test code = LY%) 17.9 % 14.3-34.3 N MONOCYTE % (test code = MO%) 7.8 % 5.1-10.4 N EOSINOPHIL % (test code = EO%) 0.3 % 0.1-3.0 N BASOPHIL % (test code = BA%) 0.6 % 0.1-1.0 N NEUTROPHIL # (test code = NT#) 5.3 K/mm3 LYMPHOCYTE # (test code = LY#) 1.3 K/mm3 MONOCYTE # (test code = MO#) 0.6 K/mm3 EOSINOPHIL # (test code = EO#) 0.02 K/mm3 BASOPHIL # (test code = BA#) 0.0 K/mm3 RBC MORPHOLOGY REQUIRED (test code NORMAL NORMAL = RBCM) PLATELET MORPHOLOGY REQUIRED (test NORMAL NORMAL code = PLTMR) [facility] [id number] 09:37:00 RUN DATE: 03/05/20 [facility] PAGE 1 RUN TIME: 936 Specimen Inquiry RUN USER: INTERFACE PATIENT: ROXY MENON LOC: JOSE Porter #: [id number] AGE/SX: 44/F ROOM: RE02/21/20[facility] DR: José Harper : 75 BED: DIS: STATUS: DEP REF TLOC: SPEC #: [id number] RECD: 02/21/20 STATUS: [place] REQ #: [id number] REYNALDO: 02/21/20 [facility] DR: José Harper MD ENTERED: 02/21/20 SP TYPE: SKYLER SANTOS DR: No Primary or Family PhysicianORDERED: SKYLER FOUNTAINING/2 COPIES TO: No Primary or Family Physician José Harper MD [address] [facility] [address] [place] [address] HISTOLOGY: TISSUE ID BLK PCS ELISABET LEV PROCEDURE DISPOSITION ____ ___ ___ ___ BREAST, NOS A 1 2 AXILLA, NOS B 1 2 PROCEDURES: SKYLER AKERS (02/21/20-1220) TISSUES: A. BREAST, NOS - RIGHT BREAST @ 12 O'CLOCK MASS BIOPSY, 6CMFN B. AXILLA, NOS - RIGHT AXILLARY LYMPH NODE BIOPSY BREAST PROGNOSTIC PANEL REPORT Breast Biomarker Report Reported: 02/29/2020 Interpretation ESTROGEN RECEPTOR: POSITIVE, 95% STRONG INTENSITY PRO GESTERONE RECEPTOR: POSITIVE, 90% STRONG INTENSITY HER-2/louie by IHC: 0, NEGATIVE Ki-67: 10% Result Reference Range Estrogen and progesterone receptor: Positive:>=1% Negative:<1% Her- 2/louie by IHC: 3+ POSITIVE 2+ EQUIVOCAL 1+ NEGATIVE 0 NEGATIVE Specimen Processing CONTINUED ON NEXT PAGE RUN DATE: 03/05/20 [facility] PAGE 2 RUN TIME: 0937 Specimen Inquiry RUN USER: INTERFACE SPEC #: [id number] PATIENT: ROXY MENON #[id number] (Con tinued) BREAST PROGNOSTIC PANEL REPORT (Continued) CONTROL STATEMENT: Appropriate controls present. SPECIMEN ADEQUACY: Adequate specimen. Specimen fixed in 10% neutral buffered formalin, paraffin embedded. STANDARD ASSAY CONDITIONS: Reported fixation time for the specimen is 15 hours and 38 minutes in 10% neutral buffered formalin. According to ASCO/CAP recommendation specimen must be fixed in 10% neutral buffered formalin, fixation time must be no less than 6 hours and no more than 72 hours. ANTIBODIES: 1. Antibody clones: ER Clone SP1 ([employer]) NE Clone Y85 ([employer]) Her2-louie SP3 ([employer]) Ki67 clone MIB1([employer]) 2. Detection System EnVision Flex ([employer]) Electronic Signature Nancy Valenzuela M.D. STATUS OF FDA APPROVAL: This test was developed and its per formance characteristics determined by [facility]. It has not been cleared or approved by the U.S. Food and Drug Administration. The FDA has determined that such clearance is not necessary.This test is used for clinical purposes. It should not be regarded as investigational or for research. This laboratory is certified under the Clinical Laboratory Improvement Amendments of 1988 (C RICARDO-88) as qualified to perform high complexity clinical testing. CPT Codes: 80348z7 CLINICAL HISTORY ABNORMAL MAMMOGRAM [facility] PATHOLOGY REPORT Result ID: [id number] Clinical History Right breast 12:00 mass, suspicious CONTINUED ON NEXT PAGE RUN DATE: 03/05/20 [facility] PAGE 3 RUN TIME: 936 Specimen Inquiry RUN USER: INTERFACE SPEC #: [facility]:[id number] PATIENT: ROXY MENON #[id number] (Continued) [facility] RE[facility] (Continued) Diagnosis A. Breast, right, 12 o'clock, 6 cm from nipple, ultrasound-guided needle core biopsy: - INVASIVE CARCINOMA OF NO SPECIAL TYPE (DUCTAL) - SHAZIA GRADE 3, MODIFIED BLACK'S NUCLEAR GRADE 2 - DUCTAL CARCINOMA IN SITU, SOLID AND COMEDO-TYPE PATTERNS WITH FOCAL MICROCALCIFICATIONS - MODIFIED BLACK'S NUCLEAR GRADE 2 B. Lymph node, right axilla, ultrasound-guided needlecore biopsy: - POSITIVE FOR METASTATIC CARCINOMA OF THE BREAST Comments Breast prognostic markers have been ordered and reported separately. Gross Description A. "Right breast biopsy @ 12 o'clock, 6 cm from nipple" Received in formalin are three thin cores of yellow-maloney soft tissue, 1.7 - 1.9 cm in greatest dimension. The entire specimen submitted as A. Fixation time: The specimen was obtained on February 21, 2020 and placed in formalin at 1128 CDT, processor started on February 22, 2020 at 0306 CDT, fixation time 15 hours 38 minutes. B. "Right axillary lymph node" Received in formalin are three thin cores of maloney soft tissue, 0.5 cm in greatest dimension. The entire specimen submitted as B. /nr Fixation time: The specimen was obtained on February 21, 2020 and placed in formalin at 1134 CDT, processor started on February 22, 2020 [id number] CDT, fixation time 15 hours 32 minutes. Microscopic Findings A. "Right breast biopsy@ 12 o'clock, 6 cm from nipple" The core biopsies demonstrate malignant cells invading in sheets and clusters. The cells demonstrate prominent nucleoli and a dtpe-nni-jemqcz chromatin pattern.Increased mitotic activity is identified (19 mitoses over ten high-power anne). Tubule formation is not identified. Ductal carcinoma in situ is also identified and demonstrates a solid pattern with focal comedo necrosis and microcalcifications. The nuclei are grade 2 in these areas of DCIS. P16 highlights the myoepithelial cells around the areas of ductal carcinoma in situ and loss ofmyoepithelial cells in the areas of invasive carcinoma. E-cadherin demonstrates weak positivity in areas of invasion and weak and focal positivity within the ductal carcinoma in situ. GATA3 is strongly positive in the malignant cells. Cells do not stain for synaptophysin or chromogranin. P120 demonstrates weak membranous staining in the areas of ductal carcinoma in situ and invasive carcinoma. CONTINUED ON NEXT PAGE RUN DATE: 03/05/20 [facility] PAGE 4 RUN TIME: 936 Specimen Inquiry RUN USER: INTERFACE SPEC #: [facility]:[id number] PATIENT: ROXY MENON #[id number] (Continued) [facility] (Continued) B. "Right axillary lymph node" The core biopsy demonstrates lymphoidtissue involved by invasive mammary carcinoma. The malignant cells stain positively for GATA3 and do not stain for synaptophysin. /avila Intradepartmental Consultation: Chencho Connors M.D. ELECTRONIC SIGNATURE Nancy Valenzuela M.D. [phone] Signed SIGNATURE ON FILE Nancy Valenzuela 03/05/20 0937 END OF REPORT
--- NOTE | 2021-10-06 19:07 | RAD REPORT ---
EXAM DESCRIPTION: RAD - Ankle Left 3 View - 10/06/2021 6:49 pm CLINICAL HISTORY: Swelling, trip and fall COMPARISON: No comparisons FINDINGS: Oblique fracture is present through the distal fibula at the level of the tibiotalar joint line. No significant distraction and no angulation deformity. Medial malleolus and posterior malleol us appear intact. On the lateral view there may be a very small 2 mm sized sliver of bone avulsed fro m the anterior margin of the tibial plafond. Tibiotalar joint space is normal. No other fracture or acute finding seen. No joint space narrowing. Anterior and lateral soft tissue swelling present. IMPRESSION: Distal left fibular fracture without significant distraction or angulation component. Very tiny avulsed fragment of bone from the anterior margin of the tibial plafond.
[2021-10-06] MEDS ORDERED: HYDROCODONE/APAP 5/325 MG TAB ONE (19:48)
[2021-10-06] MEDS ORDERED: MORPHINE 4 MG/ML SYR ONE (20:19)
--- NOTE | 2021-10-06 20:38 | ER ---
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 L ankle and Leg pain ll1 since. + swelling. No LOC or head injury. Coronavirus screen: Vaccine status: Patient reports receiving the 2nd dose of the covid vaccine. Client denies travel out of the [place] in the last 14 days. At this time, the client does not indicate any symptoms associated with coronavirus-19. Ebola Screen: Patient denies travel to an Ebola-affected area in the 21 days before illness onset. Initial Sepsis Screen: Does the patient meet any 2 criteria? No. Patient's initial sepsis screen is negative. Does the patient have a suspected source of infection? No. Patient's initial sepsis screen is negative. Risk Assessment: Do you want to hurt yourself or someone else? Patient reports no desire to harm self or others. Onset of symptoms was October 06, 2021. 17:30 Method Of Arrival: Ambulatory ll1 17:30 Acuity: NEFTALI 4 ll1 Triage Assessment: 20:30 General: Appears in no apparent distress. uncomfortable, Behavior is cooperative, vc1 appropriate for age. Pain: Complains of pain in left lateral ankle Pain does not radiate. Neuro: Level of Consciousness is awake, alert, obeys commands, Oriented to person, place, time, situation, Appropriate for age. Cardiovascular: No deficits noted. Musculoskeletal: Circulation, motion, and sensation intact. Swelling present in left lateral ankle. Injury Description: fall. Historical: - Allergies: 17:29 No Known Allergies; ll1 - PMHx: 17:29 breast CA; ll1 - PSHx: 17:29 mastectomy; hysterectomy; ll1 - Immunization history:: Client reports receiving the 2nd dose of the Covid vaccine. - Social history:: Smoking status: Patient denies any tobacco usage or history of. Screenin:30 Fall Risk Fall in past 12 months (25 points). No secondary diagnosis (0 pts). No IV (0 vc1 pts). Ambulatory Aid- None/Bed Rest/Nurse Assist (0 pts). Gait- Impaired (20 pts.). Mental Status- Oriented to own ability (0 pts). Total West Fall Scale indicates High Risk Score (45 or more points). 21:07 Abuse screen: Denies threats or abuse. Nutritional screening: No deficits noted. vc1 Tuberculosis screening: No symptoms or risk factors identified. Vital Signs: 17:30 BP 121 / 91; Pulse 50; Resp 16 S; Temp 97.9; Pulse Ox 100% ; Weight 63.5 kg; Height 5 ll1 ft. 5 in. (165.10 cm); Pain 10/10; 20:30 BP 128 / 95; Pulse 52; Resp 17; Pulse Ox 100% on R/A; vc1 21:00 Pain 4/10; vc1 17:30 Body Mass Index 23.30 (63.50 kg, 165.10 cm) ll1 ED Course: 17:23 Patient arrived in ED. am2 17:31 Triage completed. ll1 17:32 Arm band placed on. ll1 18:09 Cristian Mac NP is PHCP. pm1 18:10 Ryan Austin MD is Attending Physician. pm1 18:51 Ankle Left 3 View In Process Unspecified. EDMS 20:30 Orthoglass splint: Posterior short lleg splint applied on left leg. stirrup splint ds4 applied on left leg. 21:00 No provider procedures requiring assistance completed. Patient did not have IV access vc1 during this emergency room visit. Administered Medications: 19:45 Drug: [place] (HYDROcodone-acetaminophen) 5 mg-325 mg 1 tabs Route: PO; vc1 21:00 Follow up: Response: No adverse reaction; Pain is decreased; RASS: Alert and Calm (0) vc1 20:18 Drug: morphine 4 mg Route: IM; Site: left deltoid; vc1 21:00 Follow up: Pain 4/10 Adult; Response: No adverse reaction; Marked relief of symptoms; vc1 Pain is decreased; RASS: Alert and Calm (0) Outcome: 20:38 Discharge ordered by . pm1 21:00 Discharged to home via wheelchair, with crutches. vc1 21:00 Condition: good 21:00 Discharge instructions given to patient, family, Instructed on discharge instructions, follow up and referral plans. medication usage, crutch walking, Demonstrated understanding of instructions, follow-up care, medications, crutch walking, splint care, Prescriptions given X 1. 21:08 Patient left the ED. vc1 Signatures: Dispatcher [employer] EDVT Hai Morrison ds4 Cristian Mac NP FRUIT AND VEGETABLE CLASSER pm1 Viji Thorpe am2 Fabio Patel RN RN ll1 Shellie Ricketts RN RN vc1 Corrections: (The following items were deleted from the chart) 18:51 18:25 In radiology for Ankle Right 3 View+RAD.RAD.BRZ. EDVT EDMS 10/07 03:38 03:36 General: Appears in no apparent distress. uncomfortable, Behavior is cooperative, vc1 appropriate for age, vc1 03:38 03:36 Pain: Complains of pain in left lateral ankle Pain does not radiate. vc1 1 03:38 03:36 Neuro: Level of Consciousness is awake, alert, obeys commands, Oriented to vc1 person, place, time, situation, Appropriate for age vc1 03:38 03:36 Cardiovascular: No deficits noted. vc1 vc1 03:38 03:36 Musculoskeletal: Circulation, motion, and sensation intact. Swelling present in vc1 left lateral ankle vc1 03:38 03:36 Injury Description: fall vc1 vc1
--- NOTE | 2021-10-06 20:38 | EDPHYS ---
Physician Documentation [facility] Name: Katerine Winter Age: 46 yrs Sex: Female : 1975 Arrival Date: 10/06/2021 Time: 17:23 Bed 10 Private MD: ED Physician Ryan Austin HPI: 10/06 19:13 This 46 yrs old Female presents to ER via Ambulatory with complaints of Left pm1 ankle pain. 19:13 The patient presents with pain, that is acute. The complaints affect the left lateral pm1 ankle. Context: The problem was sustained at home, resulted from the patient tripping, dog gate, the patient is not able to bear weight, the patient is not able to ambulate, Problem is a result from a previous injury: No. Onset: The symptoms/episode began/occurred today. Modifying factors: The symptoms are alleviated by remaining still, the symptoms are aggravated by weight bearing. Associated signs and symptoms: Pertinent positives: swelling, Pertinent negatives numbness, tingling. Treatment prior to arrival includes: no previous treatment. Severity of symptoms: in the emergency department the symptoms are unchanged. The patient has not experienced similar symptoms in the past. The patient has not recently seen a physician. Historical: - Allergies: 17:29 No Known Allergies; ll1 - PMHx: 17:29 breast CA; ll1 - PSHx: 17:29 mastectomy; hysterectomy; ll1 - Immunization history:: Client reports receiving the 2nd dose of the Covid vaccine. - Social history:: Smoking status: Patient denies any tobacco usage or history of. ROS: 19:13 Constitutional: Negative for fever, chills, and weight loss, Cardiovascular: Negative pm1 for chest pain, palpitations, and edema, Respiratory: Negative for shortness of breath, cough, wheezing, and pleuritic chest pain. 19:13 Skin: Negative for injury, rash, and discoloration, Neuro: Negative for headache, weakness, numbness, tingling, and seizure. 19:13 MS/extremity: Positive for pain, swelling, tenderness, of the left lateral ankle. 19:13 All other systems are negative. Exam: 19:13 Constitutional: This is a well developed, well nourished patient who is awake, alert, pm1 and in no acute distress. Head/Face: Normocephalic, atraumatic. 19:13 Skin: Warm, dry with normal turgor. Normal color with no rashes, no lesions, and no evidence of cellulitis. 19:13 Cardiovascular: Exam negative for acute changes, Rate: normal, Rhythm: regular, Pulses: no pulse deficits are appreciated. 19:13 Respiratory: Exam negative for acute changes, respiratory distress, shortness of breath. 19:13 Musculoskeletal/extremity: Extremities: grossly normal except: noted in the left lateral ankle: swelling, tenderness, the left foot Sensation intact. 19:13 Neuro: Exam negative for acute changes, Orientation: is normal, Mentation: is normal, Motor: is normal, moves all fours. Vital Signs: 17:30 BP 121 / 91; Pulse 50; Resp 16 S; Temp 97.9; Pulse Ox 100% ; Weight 63.5 kg; Height 5 ll1 ft. 5 in. (165.10 cm); Pain 10/10; 20:30 BP 128 / 95; Pulse 52; Resp 17; Pulse Ox 100% on R/A; vc1 21:00 Pain 4/10; vc1 17:30 Body Mass Index 23.30 (63.50 kg, 165.10 cm) ll1 Procedures: 20:43 Splinting: Splint applied to left ankle using Orthoglass splint, applied by myself. pm1 tech. Examined by me, post splint application: neurovascular intact, 2+ distal pulses palpable, brisk capillary refill noted, Patient tolerated well. MDM: 19:04 Patient medically screened. pm1 20:33 Data reviewed: vital signs. Data interpreted: Pulse oximetry: on room air is 100 %. pm1 Interpretation: normal. Counseling: I had a detailed discussion with the patient and/or guardian regarding: the historical points, exam findings, and any diagnostic results supporting the discharge/admit diagnosis, radiology results, the need for outpatient follow up, to return to the emergency department if symptoms worsen or persist or if there are any questions or concerns that arise at home. 10/06 18:51 Order name: Ankle Left 3 View; Complete Time: 19:13 EDMS 10/06 19:17 Order name: Splint - Ankle: Orthoglass: Stirrup; Complete Time: 21:01 pm1 10/06 19:17 Order name: Splint - Posterior Leg; Complete Time: 21:01 pm1 10/06 20:39 Order name: Crutches; Complete Time: 03:40 pm1 Administered Medications: 19:45 Drug: [place] (HYDROcodone-acetaminophen) 5 mg-325 mg 1 tabs Route: PO; vc1 21:00 Follow up: Response: No adverse reaction; Pain is decreased; RASS: Alert and Calm (0) vc1 20:18 Drug: morphine 4 mg Route: IM; Site: left deltoid; vc1 21:00 Follow up: Pain 4/10 Adult; Response: No adverse reaction; Marked relief of symptoms; vc1 Pain is decreased; RASS: Alert and Calm (0) Disposition: 10/07 07:12 Co-signature as Attending Physician, Ryan Austin MD. rn Disposition Summary: 10/06/21 20:38 Discharge Ordered Location: Home pm1 Problem: new pm1 Symptoms: have improved pm1 Condition: Stable pm1 Diagnosis - Closed left distal fibular fracture pm1 - Closed fracture - tiny avulsed fragment of bone from anterior margin of left tibial pm1 plafond Followup: pm1 - With: Emergency Department - When: As needed - Reason: Worsening of condition Followup: pm1 - With: Private Physician - When: 2 - 3 days - Reason: Recheck today's complaints, Continuance of care, Re-evaluation by your physician Discharge Instructions: - Discharge Summary Sheet pm1 - Ankle Fracture pm1 - Cast or Splint Care, Adult pm1 - Crutch Use, Adult pm1 Forms: - Medication Reconciliation Form pm1 - Thank You Letter pm1 - Antibiotic Education pm1 - Prescription Opioid Use pm1 Prescriptions: - Tylenol-Codeine #3 300 mg-30 mg Oral - take 2 tablet by ORAL route every 6 hours As needed; 20 tablet; Refills: 0, pm1 Product Selection Permitted Signatures: Dispatcher [employer] EDMS Ryan Austin MD MD rn Marinas, Patrick, NP COLOR SEPARATION PHOTOGRAPHER pm1 Fabio Patel RN RN ll1 Shellie Ricketts RN RN vc1 Corrections: (The following items were deleted from the chart) 10/06 18:51 17:32 Ankle Right 3 View+RAD.RAD.BRZ ordered. EDMS EDMS 18:54 18:47 Ankle Left 3 View+RAD.RAD.BRZ ordered. EDMS EDMS 18:55 18:47 Foot Left 3 View+RAD.RAD.BRZ ordered. EDMS EDMS
[2021-10-06 23:27] VITALS: BP 121/91; TEMP 97.9; O2SAT 100
== END 2021-10-06 21:08 | disposition home or self-care (01) ==
LOC: ER 17:22
PROC: 2W3RX1Z Immobilization of Left Lower Leg using Splint (ICD-10-PCS; principal; 2021-10-06)
DX: S82.872A Displaced pilon fracture of left tibia, initial encounter for closed fracture (principal); S82.832A Other fracture of upper and lower end of left fibula, initial encounter for closed fracture; W18.09XA Striking against other object with subsequent fall, initial encounter; Y92.009 Unspecified place in unspecified non-institutional (private) residence as the place of occurrence of the external cause; Z85.3 Personal history of malignant neoplasm of breast
CPT/HCPCS: 96372; 99284

== ENCOUNTER → 2025-01-30 | Day surgery (SDC) | payer OTHER ==
[2025-01-28 16:20] LABS: Absolute Lymphocytes (CBC) 1.1 K/uL (0.7-4.9); Hematocrit 38.9 % (36.0-45.0); Hemoglobin 13.0 g/dL (12.0-15.0); MCH 31.3 pg (27.0-35.0); MCHC 33.4 g/dL (32.0-36.0); MCV 93.8 fL (80-100); MPV 8.0 fL (7.6-11.3); Nucleated RBC Absolute Count 0.0 (0-0); Nucleated Red Blood Cells % 0.0 % (0-0); RBC Red Blood Cell Count 4.15 M/uL (3.86-4.86); White Blood Count 6.00 thou/uL (4.3-10.9)
[2025-01-28 16:39] LABS: Anion Gap 11.8 mEq/L (5.0-15.0); BUN Blood Urea Nitrogen 11.0 mg/dL (7-18); Glucose Level 93.0 mg/dL (74-106); Potassium 3.8 mEq/L (3.5-5.1)
[~2025-01-30] MED LIST: LIDOCAINE 1% MPF 30 ML VIAL ONE; Ringers Lactate 1,000 ML IV ONE
[2025-01-30 07:41] VITALS: O2SAT 100
[2025-01-30 08:38] VITALS: BP 96/76; TEMP 97
== END ==
LOC: OR 06:29
PROVIDERS: ATTEND Surgery
PROC: 0DJD8ZZ Inspection of Lower Intestinal Tract, Via Natural or Artificial Opening Endoscopic (ICD-10-PCS; principal; 2025-01-30 07:30)
DX: Z12.11 Encounter for screening for malignant neoplasm of colon (principal); K64.4 Residual hemorrhoidal skin tags; K64.8 Other hemorrhoids
CPT/HCPCS: 93005; 85025; 80048; 36415; 45378; J2704; J2003; J7120